=== PATIENT | male | born 1985 | race American Indian/Alaskan Native ===

== ENCOUNTER 2017-07-01 14:30 | Emergency (ER) | payer SELFPAY ==
[2017-07-01 14:48] VITALS: BP 119/79
[2017-07-01 15:26] LABS: Basophils % (Auto) 0.5 % (0.0-1.8); Eosinophils # (Auto) 0.4 K/mm3 (0.0-0.4); Eosinophils % (Auto) 4.3 % (0.0-4.3); Hemoglobin 16.9 gm/dl (11.8-15.2); Lymphocytes # (Auto) 2.9 K/mm3 (1.2-5.4); Lymphocytes % (Auto) 31.6 % (13.4-35.0); Mean Corpuscular HGB Conc 35 % (32-34); Mean Corpuscular Hemoglobin 33 pg (28-32); Mean Corpuscular Volume 94 fl (84-94); Monocytes # (Auto) 0.9 K/mm3 (0.0-0.8); Monocytes % (Auto) 10.1 % (0.0-7.3); Platelet Count 221 K/mm3 (140-440); Red Blood Count 5.21 M/mm3 (3.65-5.03); Red Cell Distribution Width 12.9 % (13.2-15.2)
[2017-07-01 15:46] LABS: Alanine Aminotransferase 13 units/L (7-56); Albumin 4.4 g/dL (3.9-5); BUN/Creatinine Ratio 12; Blood Urea Nitrogen 11 mg/dL (9-20); Calcium 9.4 mg/dL (8.4-10.2); Hemolysis Index 3; Lipase 17 units/L (13-60)
[2017-07-01 16:24] LABS: Bilirubin,Urine NEG (Negative); Blood,Urine NEG (Negative); Color,Urine Yellow (Yellow); Mucus,Urine 3+ /HPF; Nitrite,Urine NEG (Negative); Urobilinogen,Urine < 2.0 mg/dL (<2.0)
[2017-07-01 16:27] LABS: WBC,Urine > 182.0 /HPF (0.0-6.0)
--- NOTE | 2017-07-01 21:13 | Emergency Department Report ---
ED Abdominal Pain HPI - General Chief Complaint: Abdominal Pain Stated Complaint: STOMACH ACHE Time Seen by Provider: 07/01/17 21:00 Source: patient Mode of arrival: Ambulatory Limitations: No Limitations - History of Present Illness Initial Comments: Patient reports abdominal pain with cramping and nausea 2 weeks. Denies any vomiting. Patient reports possibly STD exposure with penile discharge. Denies any fever or chills. Denies any back pain. He reports that he has some urinary burning on and off. Pain is located to his lower abdomen. Denies any diarrhea or sore throat. Denies any medical problems. Pain is 7 out of 10 and comes and goes. No [id number] medication taken. Pt is requested to be treated for STD. MD Complaint: abdominal pain Onset/Timin -: week(s) Location: suprapubic Radiation: none Severity: severe Severity scale (0 -10): 7 Quality: cramping Consistency: intermittent Improves With: nothing Worsens With: nothing Context: other (report possible STD) Associated Symptoms: nausea, dysuria. denies: vomiting, diarrhea, fever, chills , constipation, hematemesis, hematochezia, melena, hematuria, anorexia, syncope Treatments Prior to Arrival: other (none) - Related Data Previous Rx's Medication Instructions Recorded Last Taken Type Ciprofloxacin HCl [Ciprofloxacin 500 mg PO Q12H 10 Days #20 tab 07/01/17 Unknown Rx TAB] Allergies Allergy/AdvReac Type Severity Reaction Status Date / Time No Known Allergies Allergy Unverified 04/30/16 18:52 ED Review of Systems ROS: Stated complaint: STOMACH ACHE Other details as noted in HPI Comment: All other systems reviewed and negative Constitutional: no symptoms reported Respiratory: no symptoms reported Cardiovascular: denies: chest pain, palpitations, dyspnea on exertion, edema, syncope, paroxysmal nocturnal dyspnea Gastrointestinal: abdominal pain, nausea. denies: vomiting, diarrhea, constipation, hematemesis, melena, hematochezia Genitourinary: dysuria, discharge. denies: urgency, frequency, hematuria, testicular pain, testicular mass Musculoskeletal: denies: back pain, joint swelling, arthralgia, myalgia Skin: denies: rash Neurological: denies: headache, abnormal gait, vertigo ED Past Medical Hx - Past Medical History Previous Medical History?: No - Surgical History Past Surgical History?: No - Family History Family history: no significant - Social History Smoking Status: Current Every Day Smoker Substance Use Type: Alcohol, Marijuana, Non Opiate Pain - Medications Home Medications: Home Medications Medication Instructions Recorded Confirmed Last Taken Type Ciprofloxacin HCl [Ciprofloxacin 500 mg PO Q12H 10 Days #20 tab 07/01/17 Unknown Rx TAB] ED Physical Exam - General Limitations: No Limitations General appearance: alert, in no apparent distress - Head Head exam: Present: atraumatic, normocephalic, normal inspection - Eye Eye exam: Present: normal appearance, PERRL, EOMI Pupils: Present: normal accommodation - ENT ENT exam: Present: normal exam, normal orophraynx, mucous membranes moist - Neck Neck exam: Present: normal inspection, full ROM, other (no C-spine tenderness). Absent: tenderness, meningismus, lymphadenopathy, thyromegaly - Respiratory Respiratory exam: Present: normal lung sounds bilaterally. Absent: respiratory distress, chest wall tenderness - Cardiovascular Cardiovascular Exam: Present: regular rate, normal rhythm, normal heart sounds. Absent: systolic murmur, diastolic murmur - GI/Abdominal GI/Abdominal exam: Present: soft, normal bowel sounds. Absent: distended, tenderness, guarding, rebound, rigid, organomegaly, mass, bruit, pulsatile mass , hernia - Extremities Exam Extremities exam: Present: normal inspection, full ROM, normal capillary refill , other (no clubbing, cyanosis or edema. +2 pulses all extremities). Absent: tenderness, pedal edema, joint swelling, calf tenderness - Back Exam Back exam: Present: normal inspection, full ROM, other (ambulates without any difficulties). Absent: tenderness, CVA tenderness (R), CVA tenderness (L), muscle spasm, paraspinal tenderness, vertebral tenderness, rash noted - Neurological Exam Neurological exam: Present: alert, oriented X3, normal gait - Psychiatric Psychiatric exam: Present: normal affect, normal mood - Skin Skin exam: Present: warm, dry, intact. Absent: normal color ED Course Vital Signs 07/01/17 14:44 Temperature 97.8 F Pulse Rate 77 Respiratory 18 Rate Blood Pressure 119/79 O2 Sat by Pulse 99 Oximetry - Reevaluation(s) Reevaluation #1: 07/01/17 22:06 She received Rocephin 1 g IM to cover gonorrhea and UTI, Flagyl 2 g by mouth to cover Trichomonas and erythromycin 1 g by mouth to cover chlamydia. He had no adverse reaction and emergency room ED Medical Decision Making - Lab Data Result diagrams: 07/01/17 15:15 07/01/17 15:15 Labs 07/01/17 07/01/17 07/01/17 15:15 15:15 15:59 WBC 9.2 RBC 5.21 H Hgb 16.9 H Hct 49.0 H MCV 94 MCH 33 H MCHC 35 H RDW 12.9 L Plt Count 221 Lymph % (Auto) 31.6 [place] % (Auto) 10.1 H Eos % (Auto) 4.3 Baso % (Auto) 0.5 Lymph # 2.9 Maries # 0.9 H Eos # 0.4 Baso # 0.0 Seg Neutrophils % 53.5 Seg Neutrophils # 4.9 Sodium 142 Potassium 4.4 Chloride 103.0 Carbon Dioxide 28 Anion Gap 15 BUN 11 Creatinine 0.9 Estimated GFR > 60 BUN/Creatinine Ratio 12 Glucose 93 Calcium 9.4 Total Bilirubin 0.30 AST 12 ALT 13 Alkaline Phosphatase 81 Total Protein 7.1 Albumin 4.4 Albumin/Globulin Ratio 1.6 Lipase 17 Urine Color Yellow Urine Turbidity Clear Urine pH 5.0 Ur Specific [place] 1.030 Urine Protein 30 mg/dl Urine Glucose (UA) Neg Urine Ketones Tr Urine Blood Neg Urine Nitrite Neg Urine Bilirubin Neg Urine Urobilinogen < 2.0 Ur Leukocyte Esterase Lg Urine WBC (Auto) > 182.0 H Urine RBC (Auto) 19.0 U Epithel Cells (Auto) 1.0 Urine Mucus 3+ Culture pending - Medical Decision Making ED course: He reports abdominal cramping on and off for 2 weeks with urinary burning and penile discharge. Patient reports that he possibly has an STD and would like to be treated. Urinalysis. with positive leukocyte Estrace and positive white count. Urine culture sent and pending. Ketones trace with patient reports dysuria. Patient shows to be treated empirically for STD so he was treated with Rocephin 1 g IM for gonorrhea and to cover UTI, Flagyl 2 g by mouth for Trichomonas and azithromycin 1 g by mouth for chlamydia. I discuss lab results with patient's and also told him that he needs to follow up with [facility] in 7 to then 10 days for STD check and to refrain from having sexual activity for the next 2 weeks. He voiced understanding and also to follow up with [facility] for primary care. Pt with urinary tract infection and discharged home with prescription for ciprofloxacin Critical care attestation.: If time is entered above; I have spent that time in minutes in the direct care of this critically ill patient, excluding procedure time. ED Disposition Clinical Impression: Acute cystitis without hematuria, Abdominal pain in male, Penile discharge, Dysuria, Concern about STD in male without diagnosis Disposition: TO HOME OR SELFCARE Is pt being admited?: No Does the pt Need Aspirin: No Condition: Stable Instructions: Safe Sex (ED), Dysuria (ED), Urinary Tract Infection in Men (ED) , Abdominal Pain (ED) Additional Instructions: These increase her fluid intake to 2-3 L of water and cranberry juice. Practice safe sex Follow up with health department in 7-10 days for STD S then Please refrain from having sexual activity for the next 2 weeks You were treated in the emergency room today for Trichomonas, gonorrhea and chlamydia please E partner know that you're having symptoms of penile discharge and was treated in the emergency room so they can go and get checked at the health Department. Please do not drink or call as medication taken for Trichomonas can cause stomach upset. Refrain from drinking alcohol over the next 5 days Prescriptions: Ciprofloxacin HCl [Ciprofloxacin TAB] 500 mg PO Q12H 10 Days #20 tab Referrals: KATHY RUSSO MD [Primary Care Provider] - 3-5 Days Forms: Work/School Release Form(ED)
[2017-07-01] MEDS ORDERED: ROCEPHIN IM STA (21:21)
[2017-07-01] MEDS ORDERED: ZITHROMAX PO ONE (21:21)
[2017-07-01] MEDS ORDERED: XYLOCAINE 1% MPF 5 mL INFILTRATI ONE (21:21)
[2017-07-01] MEDS ORDERED: FLAGYL PO ONE (21:22)
== END 2017-07-01 22:31 | disposition home or self-care (01) ==
LOC: ED 14:30
DX: N30.00 Acute cystitis without hematuria (principal); F17.200 Nicotine dependence, unspecified, uncomplicated; F12.10 Cannabis abuse, uncomplicated
CPT/HCPCS: 36415; 80053; 81001; 83690; 85025; 87086; 96372; 99283; J0696